=== PATIENT | female | born 1970 | race Caucasian/White ===

== ENCOUNTER 2023-12-27 14:07 | Emergency (ER) | payer MEDICAID ==
[~2023-12-27] VITALS: Ht 134.6 cm; Wt 55.0 kg
[~2023-12-27 14:07] MED LIST: ALBU6.7H15 INH; FLUT1BLS9 IH; METF-414 PO; OMEP40CA20 MT; SIMV-43 PO
[2023-12-27 14:11] VITALS: O2SAT 97
[2023-12-27 15:15] LABS: CHLORIDE 109 mEq/L (98-107); POTASSIUM 3.8 mEq/L (3.5-5.1); SODIUM 137 mEq/L (136-145)
[2023-12-27 15:16] LABS: CARBON DIOXIDE 24 mEq/L (21-32)
[2023-12-27] MEDS: FAMOTIDINE 20MG TABLET PO ONE (15:16)
[2023-12-27 15:17] LABS: CALCIUM 8.7 mg/dL (8.7-10.4)
[2023-12-27] MEDS: MAGNESIUM/ALUMINUM HYDROXIDE/SIMETHICONE 30ML UDC PO ONE (15:17)
[2023-12-27 15:21] LABS: BASOPHILS % 0.5 % (0.0-2.0); CREATININE 0.7 mg/dL (0.6-1.0); DIFFERENTIAL COMMENT 0; HEMOGLOBIN. 11.3 g/dL (12.0-16.0); LYMPHOCYTES % 16.5 % (20.0-50.0); MEAN CORPUSCULAR HGB CONC 33.2 g/dL (31.0-37.0); MEAN CORPUSCULAR VOLUME 102.5 fL (81.0-99.0); MEAN PLATELET VOLUME 8.8 fl (7.4-10.4); MONOCYTES % 4.9 % (2.0-8.0); NEUTROPHILS % 78.1 % (40.0-76.0); PLATELET 328 x1000/uL (130-400); RED BLOOD CELL COUNT 3.32 mill/uL (4.2-5.4); WHITE BLOOD COUNT 7.6 x1000/uL (4.5-11.0)
[2023-12-27] MEDS: KETOROLAC 30MG/ML VIAL IM ONE (15:21)
[2023-12-27 15:22] LABS: GLUCOSE 91 mg/dL (70-105); UREA NITROGEN BLOOD 11 mg/dL (9-23)
[2023-12-27 15:24] LABS: ALANINE AMINOTRANSFERASE 16 IU/L (10-49); ALBUMIN 4.3 g/dL (3.2-4.8); ASPARTATE AMINOTRANSFERASE 22 IU/L (<34); BILIRUBIN TOTAL 0.4 mg/dL (0.1-1.0); PROTEIN TOTAL 6.7 g/dL (6.0-8.3)
[2023-12-27 15:29] LABS: HCG SCREEN NEGATIVE
[2023-12-27 15:37] LABS: BILIRUBIN DIRECT < 0.1 mg/dL (<=3.0)
[2023-12-27 18:34] VITALS: BP 117/71; PULSE 83; RESP 18; TEMP 98.8
== END 2023-12-27 18:37 | disposition home or self-care (01) ==
LOC: ER 14:07
DX: R10.11 Right upper quadrant pain (principal); E11.9 Type 2 diabetes mellitus without complications; J45.909 Unspecified asthma, uncomplicated; Z90.710 Acquired absence of both cervix and uterus; Z98.890 Other specified postprocedural states
CPT/HCPCS: 80076; 80048; 84703; 83690; 85025; 86850; 86900; 86901; 36415; 76705; 93005; 96372; 99285; J1885; Z7610